=== PATIENT | male | born 1985 ===

== ENCOUNTER → 2020-04-02 | Outpatient (CLI) | payer OTHER | LOC: MHCPAIN 14:04 | DX: M47.818 Spondylosis without myelopathy or radiculopathy, sacral and sacrococcygeal region (principal); M53.3 Sacrococcygeal disorders, not elsewhere classified; M54.5 Low back pain; G89.29 Other chronic pain | CPT/HCPCS: G0463 ==

== ENCOUNTER → 2020-04-18 | Outpatient (CLI) | payer OTHER | LOC: MHCPAIN 13:02 | DX: M47.818 Spondylosis without myelopathy or radiculopathy, sacral and sacrococcygeal region (principal); M53.3 Sacrococcygeal disorders, not elsewhere classified; M54.5 Low back pain | CPT/HCPCS: G0260; J1040; Q9967 ==

== ENCOUNTER → 2020-05-07 | Outpatient (CLI) | payer OTHER | LOC: MHCPAIN 12:58 | DX: M47.818 Spondylosis without myelopathy or radiculopathy, sacral and sacrococcygeal region (principal); M53.3 Sacrococcygeal disorders, not elsewhere classified; G89.29 Other chronic pain | CPT/HCPCS: G0463 ==